=== PATIENT | male | born 1930 | race Caucasian/White ===

== ENCOUNTER 2018-10-03 18:31 | Emergency (ER) | payer OTHER, MEDICAID ==
[~2018-10-03] VITALS: Ht 162.6 cm; Wt 86.6 kg
[~2018-10-03 18:31] MED LIST: APIX2.5T PO; ASPI325T32 PO; CALCIUM PO; CHOL100062 PO; FURO20TA3 PO; POTA20TA96 PO
[2018-10-03 18:34] VITALS: Ht 162.6 cm; Wt 86.6 kg
--- NOTE | 2018-10-03 19:08 | ERD ---
ER Documentation Chief Complaint Chief Complaint Abdominal pain HPI The patient is a 88-year-old male, presenting to the ER because of left lower quadrant abdominal pain for 1 week, worse tonight, denies similar symptoms previously, denies fever, chills or neck pain, chest pain, dyspnea, upper abdominal pain. He denies nausea, vomiting, dysuria, come planes of chronic diarrhea. He does not smoke nor drink He is a very poor historian; he says he takes blood thinner but does not know what it is Past medical history: CAD Surgical history: Pacemaker ROS Limited due to his condition Medications Home Meds Reported Medications [Calcium] No Conflict Check, 1 TAB PO QAM 10/03/18 Apixaban* (Eliquis*) Unknown Strength Tablet, PO BID, TAB 10/03/18 Cholecalciferol* (Vitamin D3*) 1,000 Unit Tablet, 1000 UNIT PO DAILY, TAB 10/03/18 Aspirin* (Aspirin* EC) 325 Mg Tab, 325 MG PO DAILY, TAB 10/03/18 Potassium Chloride* (Potassium Chloride*) 20 Meq Tablet.er, 20 MEQ PO DAILY, TAB.SA 10/03/18 Furosemide* (Furosemide*) 20 Mg Tablet, 20 MG PO DAILY, #60 TAB 10/03/18 Allergies Allergies: Coded Allergies: No Known Allergy (Unverified , 10/03/18) Physical Exam Vitals Vital Signs Date Temp Pulse Resp B/P (MAP) Pulse Ox O2 O2 Flow FiO2 Time Delivery Rate 10/03/18 98.1 79 20 125/71 100 Room Air 19:12 (89) 10/03/18 98.1 79 20 120/57 100 18:34 (78) Physical Exam Const: No acute distress. Head: Atraumatic. Eyes: Normal Conjunctiva. ENT: Normal External Ears, Nose and Mouth. Neck: Full range of motion. No meningismus. Resp: Clear to auscultation bilaterally. Cardio: Regular rate and rhythm. Abd: Soft, non distended, normal bowel sounds, left lower quadrant tenderness, no rigidity/rebound/CVA tenderness Skin: No petechiae or rashes. Back: No midline or flank tenderness. Ext: No cyanosis, or edema. Neur: Awake and alert. No focal deficit Psych: Normal Mood and Affect. Result Diagram: 10/03/18195010/03/181950 Results 24 hrs Laboratory Tests Test 10/03/18 19:51 10/03/18 20:47 White Blood Count 12.8 10^3/ul Red Blood Count 3.81 10^6/ul Hemoglobin 11.8 g/dl Hematocrit 36.0 % Mean Corpuscular Volume 94.5 fl Mean Corpuscular Hemoglobin 31.0 pg Mean Corpuscular Hemoglobin Concent 32.8 g/dl Red Cell Distribution Width 14.1 % Platelet Count 162 10^3/UL Mean Platelet Volume 11.9 fl Immature Granulocytes % 0.400 % Neutrophils % 68.2 % Lymphocytes % 21.6 % Monocytes % 9.0 % Eosinophils % 0.5 % Basophils % 0.3 % Nucleated Red Blood Cells % 0.0 /100WBC Immature Granulocytes # 0.050 10^3/ul Neutrophils # 8.7 10^3/ul Lymphocytes # 2.8 10^3/ul Monocytes # 1.2 10^3/ul Eosinophils # 0.1 10^3/ul Basophils # 0.0 10^3/ul Nucleated Red Blood Cells # 0.0 10^3/ul Sodium Level 141 mmol/L Potassium Level 4.5 mmol/L Chloride Level 105 mmol/L Carbon Dioxide Level 27 mmol/L Anion Gap 9 Blood Urea Nitrogen 27 mg/dl Creatinine 1.40 mg/dl Est Glomerular Filtrat Rate mL/min mL/min Glucose Level 130 mg/dl Calcium Level 9.3 mg/dl Total Bilirubin 1.4 mg/dl Direct Bilirubin 0.00 mg/dl Indirect Bilirubin 1.4 mg/dl Aspartate Amino Transf (AST/SGOT) 22 IU/L Alanine Aminotransferase (ALT/SGPT) 20 IU/L Alkaline Phosphatase 98 IU/L Total Protein 7.9 g/dl Albumin 3.8 g/dl Globulin 4.10 g/dl Albumin/Globulin Ratio 0.92 Lipase 36 U/L Bedside Urine pH (LAB) 5.0 Bedside Urine Protein (LAB) Negative Bedside Urine Glucose (UA) Negative Bedside Urine Ketones (LAB) Negative Bedside Urine Blood Negative Bedside Urine Nitrite (LAB) Negative Bedside Urine Leukocyte Esterase (L 1+ Current Medications Medications Dose Sig/Dang Start Time Status Last (Trade) Ordered Route PRN Stop Time Admin Dose Reason Admin Piperacillin 100 ml @ ONCE ONCE 10/03/18 10/03/18 Sod/ 200 mls/hr IVPB 23:00 10/03/18 23:01 Tazobactam 23:29 Sod Procedures/MDM EKG: Read by emergency physician Rate/Rhythm: Pacer 70 beats/min No further attempt to interpret the EKG Abdominal pelvic CT per radiologist show acute to moderate diverticulitis of the proximal sigmoid colon with bowel wall thickening and adjacent fatty stranding. Evidence of perforation or focal fluid collections MEDICAL MAKING DECISION: The patient is a 88-year-old male, presenting with acute diverticulitis, acute cystitis, cholelithiasis He was treated with Zosyn IV for acute diverticulitis and acute cystitis, 500 ml normal saline IV for dehydration The differential diagnoses considered include but are not limited to cholelithiasis, cholecystitis, choledocholithiasis, cholangitis, pancreatitis, hepatitis, gastritis, peptic ulcer disease, gastric ulcer, appendicitis, cystitis, diverticulitis, partial small bowel obstruction. Departure Diagnosis: Primary Impression: Diverticulitis Additional Impressions: Cystitis Dehydration Anemia Condition: Stable Comments I discussed the patient with his IPA physician Dr Colón at 11:15pm, was made aware of the lab, the patient condition, the treatment. He will call us back to see whether he can take the patient I discussed the findings with the patient. Disclaimer: Inadvertent spelling and grammatical errors are likely due to EHR/dictation software use and do not reflect on the overall quality of patient care. Also, please note that the electronic time recorded on this note does not necessarily reflect the actual time of the patient encounter. MACARENA HAQ MD Oct 03, 2018 19:08
[2018-10-03] MEDS ORDERED: PIPER-TAZO 3.375 GM IV (PMX) 100 ML IVPB ONE (23:00)
[2018-10-04 01:20] VITALS: BP 110/57; PULSE 70; RESP 17
== END 2018-10-04 01:45 | disposition home or self-care (01) ==
LOC: E/R 18:31
DX: K57.32 Diverticulitis of large intestine without perforation or abscess without bleeding (principal); N30.90 Cystitis, unspecified without hematuria; E86.0 Dehydration; D64.9 Anemia, unspecified; I10 Essential (primary) hypertension; Z79.82 Long term (current) use of aspirin
CPT/HCPCS: 36415; 74176; 80053; 81003; 83690; 85025; 96374; 99285; J2543